=== PATIENT | male | born 1950 | race Caucasian/White ===

== ENCOUNTER → 2016-08-22 | Outpatient (CLI) | payer MEDICARE, OTHER ==
[~2016-08-22] MED LIST: ALBUTEROL2.5 MG/31 INH; CLOBETASOL EMOL30 GM TOP; COZAAR100 MG PO; ECOTRIN325 MG PO; FOLIC ACID1 MG PO; HYDRODIURIL25 MG PO; LIPITOR80 MG PO; LOPRESSOR50 MG PO; PLAVIX75 MG PO; PROTONIX20 MG PO; ROBITUSSIN DM120 ML PO; THERAGRAN-M1 TAB PO; TYLENOL325 MG PO; ZOCOR40 MG PO
[2016-08-22 10:21] LABS: ANION GAP 9.9 (10.0-19.0); BLOOD UREA NITROGEN 19 mg/dL (6-24); CALCIUM 8.4 mg/dL (8.5-10.5); CHLORIDE 106 mMol/L (96-110); CO2 27 mMol/L (22-32); CREATININE 0.9 mg/dL (0.6-1.3); ESTIMATED GFR (MDRD EQUATION) > 60; POTASSIUM 3.9 mMol/L (3.7-5.1); SODIUM 139 mMol/L (135-145)
== END ==
LOC: LGSOS 10:07
PROVIDERS: Internal Medicine Interventional Cardiology
DX: I10 Essential (primary) hypertension (principal)